=== PATIENT | female | born 1980 | race Caucasian/White ===

== ENCOUNTER 2017-10-30 14:19 | Emergency (ER) | payer OTHER ==
[~2017-10-30] VITALS: Ht 170.2 cm; Wt 104.3 kg
[~2017-10-30 14:19] MED LIST: ATEN25TA2 PO; CALC500T31 PO; FERR325E14 PO; MULT-298 PO; POTA75TA2 PO; [UNRECOGNIZED DRUG - CODE] PO
[2017-10-30 14:22] VITALS: BP 131/81
--- NOTE | 2017-10-30 14:23 | NUR ---
PT AMBULATED TO BED 8 AT THIS TIME
--- NOTE | 2017-10-30 14:26 | NUR ---
37 Y/O F PRESENTS TO THE ED W/C/O L ANKLE PAIN X 3 DAYS. PT DENIES DOING ANYTHING TO ANKLE AND THAT IT WAS SUDDEN ONSET. SWELLING NOTED TO L ANKLE. PERIPHERAL PULSES PRESENT. NO OBVIOUS DEFORMITIES. FULL ROM. PT DENIES N/V/D; SKIN IS INTACT, PINK/WARM/DRY; AAOX4, PERRL, WITH EVEN AND STEADY GAIT; LUNGS CLEAR BL, BREATHING UNLABORED; HR EVEN AND REGULAR, BL PERIPHERAL PULSES PRESENT; BS ACTIVE X4, NO TENDERNESS TO PALPATION, NO HEPATOSPLENOMEGALLY PALPATED, RESONANT TO PERCUSSION; PT DENIES ANY FEVER, CP, SOB, OR COUGH AT THIS TIME; PT STATES 5/10 PAIN AT THIS TIME; VSS; PATIENT POSITIONED FOR COMFORT; HOB ELEVATED; BEDRAILS UP X2; BED DOWN.
[2017-10-30] MEDS ORDERED: KETOROLAC 60 MG/2 ML VIAL IM ONE (14:45)
[2017-10-30 16:05] VITALS: BP 128/79
== END 2017-10-30 16:07 | disposition home or self-care (01) ==
LOC: MED 14:19
DX: S93.402A Sprain of unspecified ligament of left ankle, initial encounter (principal); I10 Essential (primary) hypertension; Z79.899 Other long term (current) drug therapy; X58.XXXA Exposure to other specified factors, initial encounter; Y93.89 Activity, other specified; Y92.89 Other specified places as the place of occurrence of the external cause; Y99.8 Other external cause status
CPT/HCPCS: 73610; 73630; 81025; 96372; 99285; J1885; Q0092; 99283

== ENCOUNTER 2017-12-02 13:13 | Emergency (ER) | payer OTHER ==
[~2017-12-02] VITALS: Ht 170.2 cm; Wt 104.3 kg
[2017-12-02 13:28] VITALS: BP 125/87
--- NOTE | 2017-12-02 13:30 | NUR ---
PT TRIAGED AND SENT TO ER LOBBY. GIVEN URINE CUP
--- NOTE | 2017-12-02 14:00 | NUR ---
pt ambulated to ed room 9
--- NOTE | 2017-12-02 14:01 | NUR ---
PT C/O BEING SEEN 4 WEEKS AGO AND DX WITH SPRAINED l ANKLE, SAYS IT IS STILL 8/10 PAIN. NO OTHER COMPLAINTS. CMS INTANT, +SWELLING AND - REDNESS. 9/10 PAIN. PT AMBULATES FINE. HX: IRON DEFICIENCY ANEMIA MEDS: NONE
[2017-12-02 15:11] VITALS: BP 126/86
--- NOTE | 2017-12-02 15:11 | NUR ---
Patient discharged with v/s stable. Written and verbal after care instructions given and explained. Patient alert, oriented and verbalized understanding of instructions. Ambulatory with steady gait. All questions addressed prior to discharge. ID band removed. Patient advised to follow up with PMD. Rx of TRAMADOL 50MG given. Patient educated on indication of medication including possible reaction and side effects. Opportunity to ask questions provided and answered.
== END 2017-12-02 15:11 | disposition home or self-care (01) ==
LOC: MED 13:13
DX: M72.2 Plantar fascial fibromatosis (principal); I10 Essential (primary) hypertension; Z98.84 Bariatric surgery status; Z79.899 Other long term (current) drug therapy
CPT/HCPCS: 99283

== ENCOUNTER 2018-07-29 19:12 | Emergency (ER) | payer OTHER ==
[~2018-07-29] VITALS: Ht 170.2 cm; Wt 99.8 kg
[2018-07-29 19:15] VITALS: BP 102/60
--- NOTE | 2018-07-29 19:20 | NUR ---
PT AMBULATED TO BED 4. PROVIDED WITH URINE CUP.
--- NOTE | 2018-07-29 19:30 | NUR ---
PT BIB SELF C/O CONGESTION AND SOB. PT STATES CONGESTION STARTED FRIDAY, TODAY PT WOKE UP HAVING A HARD TIME CATCHING HER BREATHE; STATES SHE HAS A HARD TIME TAKING DEEP BREATHES INSPIRATORY. +YELLOW RHINITIS PRODUCTION, +DRY COUGH. --LUNG SOUNDS CLEAR BL, PT SPEAKING IN CLEAR AND COMPLETE SENTENCES W/O DISTRESS. PT ACTING APPROPRIATLY; STATES 0/10 PAIN AT THIS TIME. PT IN BED, BED IN LOWER LOCKED POSITION; BEDRAILS UP X1. ERMD AWARE OF PT STATUS. PMH: DENIES RX: IBUPROFEN, AMOXICILLIN, FLONASE W/O RELIEF
[2018-07-29] MEDS ORDERED: ALBUTEROL SULFATE/IPRATROPIU 3 ML SOL IH ONE (19:35)
[2018-07-29] MEDS ORDERED: methylPREDNISolone SS 125 MG/2 ML VIAL IM ONE (19:35)
--- NOTE | 2018-07-29 19:45 | NUR ---
X-RAY AT BEDSIDE.
--- NOTE | 2018-07-29 20:48 | NUR ---
Patient discharged with v/s stable. Written and verbal after care instructions given and explained. Patient alert, oriented and verbalized understanding of instructions. Ambulatory with steady gait. All questions addressed prior to discharge. ID band removed. Patient advised to follow up with PMD. Rx of ALBUTEROL AND PREDNISONE given. Patient educated on indication of medication including possible reaction and side effects. Opportunity to ask questions provided and answered.
[2018-07-29 20:49] VITALS: BP 108/61
== END 2018-07-29 20:49 | disposition home or self-care (01) ==
LOC: MED 19:12
DX: J45.909 Unspecified asthma, uncomplicated (principal); I10 Essential (primary) hypertension; Z79.899 Other long term (current) drug therapy
CPT/HCPCS: 71045; 94640; 94760; 96372; 99283; J2930; J7620; Q0092

== ENCOUNTER 2019-05-05 18:36 | Emergency (ER) | payer OTHER ==
[~2019-05-05] VITALS: Ht 170.2 cm; Wt 94.0 kg
[2019-05-05 19:05] VITALS: BP 133/102
[2019-05-05 21:59] VITALS: BP 129/87
== END 2019-05-05 21:59 | disposition home or self-care (01) ==
LOC: MED 18:36
DX: J06.9 Acute upper respiratory infection, unspecified (principal); Z79.899 Other long term (current) drug therapy
CPT/HCPCS: 87081; 87804; 99283

== ENCOUNTER 2022-02-02 13:52 | Emergency (ER) | payer OTHER ==
[~2022-02-02] VITALS: Ht 165.1 cm; Wt 74.8 kg
[2022-02-02 14:50] VITALS: BP 145/79
--- NOTE | 2022-02-02 14:52 | NUR ---
PD REPORT ALREADY FILED BY PT
[2022-02-02] MEDS ORDERED: ACET-8386 PO (15:19)
[2022-02-02] MEDS ORDERED: ACETAMINOPHEN EXTRA STRENGTH 500 MG TAB PO ONE (15:25)
[2022-02-02 15:45] VITALS: BP 145/79
--- NOTE | 2022-02-02 15:46 | NUR ---
Patient discharged with v/s stable. Written and verbal after care instructions given and explained. Patient alert, oriented and verbalized understanding of instructions. Ambulatory with steady gait. All questions addressed prior to discharge. ID band removed. Patient advised to follow up with PMD. Rx of hydrocodone (sent) given. Patient educated on indication of medication including possible reaction and side effects. Opportunity to ask questions provided and answered.
== END 2022-02-02 15:45 | disposition home or self-care (01) ==
LOC: MED 13:52
DX: S09.11XA Strain of muscle and tendon of head, initial encounter (principal); Y04.8XXA Assault by other bodily force, initial encounter; Y93.89 Activity, other specified; Y92.89 Other specified places as the place of occurrence of the external cause; Y99.8 Other external cause status
CPT/HCPCS: 99283

== ENCOUNTER 2023-07-27 04:54 | Emergency (ER) | payer OTHER ==
[~2023-07-27] VITALS: Ht 170.2 cm; Wt 111.1 kg
[2023-07-27 04:54] VITALS: BP 148/76; PULSE 63; RESP 16; TEMP 97.4; O2SAT 100
[~2023-07-27 04:54] MED LIST changes: +ACET-8905 PO
[2023-07-27 07:52] LABS: BASOPHILS # (AUTO) 0.1 K/uL (0.00-0.22); EOSINOPHILS # (AUTO) 0.1 K/uL (0-0.4); EOSINOPHILS % (AUTO) 1.1 % (0.0-4.0); HEMATOCRIT 34.3 % (36-48); HEMOGLOBIN 11.3 g/dL (12.0-16.0); LYMPHOCYTES # (AUTO) 2.6 K/uL (2.5-16.5); LYMPHOCYTES % (AUTO) 33.7 % (20.5-51.1); MEAN CORPUSCULAR HEMOGLOBIN 24 pg (27-31); MEAN CORPUSCULAR HGB CONC 33 g/dL (33-37); MEAN CORPUSCULAR VOLUME 73.5 fL (80-94); MONOCYTES # (AUTO) 0.7 K/uL (0.8-1.0); MONOCYTES % (AUTO) 9.4 % (1.7-9.3); NEUTROPHILS # (AUTO) 4.2 K/uL (1.8-7.7); NEUTROPHILS % (AUTO) 54.8 % (42.2-75.2); PLATELET COUNT (AUTO) 328 K/uL (140-450); RED BLOOD CELL COUNT(AUTO) 4.66 MIL/uL (4.20-5.40); RED CELL DISTRIBUTION WIDTH 17.7 % (11.6-13.7); WHITE BLOOD COUNT (AUTO) 7.6 K/uL (4.8-10.8)
[2023-07-27 08:03] LABS: ANION GAP 12.8 (8-16); CALCIUM 9.1 mg/dL (8.5-10.1); CARBON DIOXIDE 26.7 mmol/L (21-32); CREATININE 0.7 mg/dL (0.6-1.3); POTASSIUM 4.5 mmol/L (3.5-5.1)
[2023-07-27 08:20] LABS: INR 0.96 (0.8-1.2); PARTIAL THROMBOPLASTIN TIME 20.4 secs (22-35.6); PROTHROMBIN TIME 10.1 secs (10.8-13.4)
[2023-07-27 09:51] VITALS: BP 145/72; PULSE 66; RESP 16; TEMP 98; O2SAT 100
== END 2023-07-27 09:51 | disposition home or self-care (01) ==
LOC: MED 04:54
DX: R06.02 Shortness of breath (principal); Z79.899 Other long term (current) drug therapy
CPT/HCPCS: 36415; 71045; 80048; 83880; 84484; 85025; 85610; 85730; 93005; 99285